=== PATIENT | female | born 1955 | race Caucasian/White ===

== ENCOUNTER 2016-07-23 12:23 | Emergency (ER) | payer MEDICARE, MEDICAID ==
[2016-07-23] MEDS ORDERED: DUONEB INH ONE (15:02)
[2016-07-23] MEDS ORDERED: METOCLOPRAMIDE 10 MG/2 ML VIAL ONE (15:23)
[2016-07-23] MEDS ORDERED: DIPHENHYDRAMINE 50 MG/ML VIAL ONE (15:23)
[2016-07-23] MEDS ORDERED: DIPHENHYDRAMINE 25 MG CAP ONE (15:51)
[2016-07-23] MEDS ORDERED: METOCLOPRAMIDE 10 MG TAB ONE (15:51)
== END 2016-07-23 17:07 | disposition home or self-care (01) ==
LOC: ER 12:23
CPT/HCPCS: 70450; 71010; 94640